=== PATIENT | female | born 1970 | race American Indian/Alaskan Native ===

== ENCOUNTER 2018-04-19 09:02 | Emergency (ER) | payer SELFPAY ==
[2018-04-19 09:22] VITALS: BP 147/70
[2018-04-19] MEDS ORDERED: COLCHICINE PO ONE (11:01)
--- NOTE | 2018-04-19 11:01 | Emergency Department Report ---
ED Lower Extremity HPI - General Chief Complaint: Extremity Injury, Lower Stated Complaint: BIG TOE JOINT PAIN Time Seen by Provider: 04/19/18 11:00 Source: patient Mode of arrival: Ambulatory Limitations: No Limitations - History of Present Illness Complaint: other (R GREAT TOE PAIN. EVEN THE SHEET HURTS ) -: Sudden Injury: Toes: Right Type of Injury: other (NO TRAUMA) Place: home Severity: moderate Worsens With: weight bearing, movement, palpation Associated Symptoms: ambulatory (W LIMP). denies: snap/pop sensation, swelling , numbness, tingling, unable to bear weight, able to partially bear weight Treatments Prior to Arrival: NSAIDS - Related Data Previous Rx's Medication Instructions Recorded Last Taken Type Colchicine 0.6 mg PO DAILY #10 capsule 04/19/18 Unknown Rx predniSONE [Deltasone] 50 mg PO QDAY #5 tab 04/19/18 Unknown Rx Allergies Allergy/AdvReac Type Severity Reaction Status Date / Time No Known Allergies Allergy Verified 04/19/18 09:20 ED Review of Systems ROS: Stated complaint: BIG TOE JOINT PAIN Other details as noted in HPI Comment: All other systems reviewed and negative Constitutional: denies: chills Eyes: denies: eye pain ENT: denies: throat pain Respiratory: denies: cough Cardiovascular: denies: palpitations Endocrine: denies: intolerance to heat Gastrointestinal: denies: vomiting Genitourinary: denies: urgency Musculoskeletal: joint swelling (R GREAT TOE). denies: back pain Skin: denies: rash, lesions Neurological: denies: weakness Psychiatric: denies: depression Hematological/Lymphatic: denies: easy bleeding ED Past Medical Hx - Past Medical History Additional medical history: ARTHRITIS - Surgical History Past Surgical History?: No - Social History Smoking Status: Current Every Day Smoker Substance Use Type: Alcohol - Medications Home Medications: Home Medications Medication Instructions Recorded Confirmed Last Taken Type Colchicine 0.6 mg PO DAILY #10 capsule 04/19/18 Unknown Rx predniSONE [Deltasone] 50 mg PO QDAY #5 tab 04/19/18 Unknown Rx ED Physical Exam - General Limitations: No Limitations General appearance: alert - Head Head exam: Present: atraumatic - Eye Eye exam: Present: normal appearance Pupils: Present: normal accommodation - ENT ENT exam: Present: mucous membranes moist - Neck Neck exam: Present: normal inspection - Respiratory Respiratory exam: Present: normal lung sounds bilaterally - Cardiovascular Cardiovascular Exam: Present: regular rate - GI/Abdominal GI/Abdominal exam: Present: soft - Rectal Rectal exam: Present: deferred - Extremities Exam Extremities exam: Present: normal inspection, full ROM, tenderness (R GREAT TOE) , normal capillary refill. Absent: pedal edema - Back Exam Back exam: Present: normal inspection, full ROM. Absent: tenderness, CVA tenderness (R) - Neurological Exam Neurological exam: Present: alert, oriented X3, CN II-XII intact, normal gait, reflexes normal - Psychiatric Psychiatric exam: Present: normal affect, normal mood - Skin Skin exam: Present: warm, dry, intact, normal color ED Course Vital Signs 04/19/18 09:20 Temperature 98.1 F Pulse Rate 68 Respiratory 18 Rate Blood Pressure 147/70 O2 Sat by Pulse 100 Oximetry ED Lower Extremity MDM - Medical Decision Making NO TRAUMA PAIN EVEN W SHEET ON TOE - Differential Diagnosis TRAUMA V GOUT Critical care attestation.: If time is entered above; I have spent that time in minutes in the direct care of this critically ill patient, excluding procedure time. ED Disposition Clinical Impression: Great toe pain, Gout Disposition: - TO HOME OR SELFCARE Is pt being admited?: No Does the pt Need Aspirin: No Condition: Stable Instructions: Acute Gouty Arthritis (ED), Arthralgia (ED) Additional Instructions: DIET - SEE ATTACHED ACTIVITY TOLERATED MEDS ORDERED MOTRIN OVER THE COUNTER CAN BE USED FOR PAIN NOT RELIEVED BY THESE MEDS FOLLOW UP WITH PCP SEE BELOW. Prescriptions: Colchicine 0.6 mg PO DAILY #10 capsule predniSONE [Deltasone] 50 mg PO QDAY #5 tab Referrals: PRIMARY MD LILLY [Primary Care Provider] - 3-5 Days JERALD PIZANO MD [Staff Physician] - 3-5 Days Time of Disposition: 11:03
[2018-04-19] MEDS ORDERED: DELTASONE PO ONE (11:02)
== END 2018-04-19 11:28 | disposition home or self-care (01) ==
LOC: ED 09:02
DX: M79.674 Pain in right toe(s) (principal); M10.9 Gout, unspecified; F17.200 Nicotine dependence, unspecified, uncomplicated; M19.90 Unspecified osteoarthritis, unspecified site
CPT/HCPCS: 99282; J7512

== ENCOUNTER 2018-08-17 06:15 | Emergency (ER) | payer SELFPAY ==
[2018-08-17 06:42] VITALS: BP 128/72
--- NOTE | 2018-08-17 09:08 | Emergency Department Report ---
ED General Adult HPI - General Chief complaint: Extremity Injury, Lower Stated complaint: LEFT KNEE SWOLLEN Time Seen by Provider: 08/17/18 08:57 Source: patient Mode of arrival: Ambulatory Limitations: No Limitations - History of Present Illness Initial comments: Patient presents to emergency department with a chief complaint of onset of left knee pain that started yesterday. Patient states she has a history of gout, left great toe and this pain feels very similar. She states her gout pain was helped with colchicine. Patient denies any injury or overuse of her knee. -: Sudden Location: lower extremity Severity scale (0 -10): 8 Quality: aching, sharp Consistency: constant Improves with: rest Worsens with: movement Associated Symptoms: denies other symptoms Treatments Prior to Arrival: none - Related Data Previous Rx's Medication Instructions Recorded Last Taken Type Colchicine 0.6 mg PO DAILY #10 capsule 04/19/18 Unknown Rx predniSONE [Deltasone] 50 mg PO QDAY #5 tab 04/19/18 Unknown Rx Colchicine 0.6 mg PO DAILY PRN #10 capsule 08/17/18 Unknown Rx Ibuprofen [Motrin] 800 mg PO Q8HR PRN #30 tablet 08/17/18 Unknown Rx predniSONE [Deltasone] 20 mg PO DAILY #15 tablet 08/17/18 Unknown Rx traMADol [Ultram] 50 mg PO Q6HR PRN #24 tablet 08/17/18 Unknown Rx Allergies Allergy/AdvReac Type Severity Reaction Status Date / Time No Known Allergies Allergy Verified 04/19/18 09:20 ED Review of Systems ROS: Stated complaint: LEFT KNEE SWOLLEN Other details as noted in HPI Comment: All other systems reviewed and negative Constitutional: denies: chills, fever Eyes: denies: eye pain, eye discharge, vision change ENT: denies: ear pain, throat pain Respiratory: denies: cough, shortness of breath, wheezing Cardiovascular: denies: chest pain, palpitations Endocrine: no symptoms reported Gastrointestinal: denies: abdominal pain, nausea, diarrhea Genitourinary: denies: urgency, dysuria, discharge Musculoskeletal: arthralgia. denies: back pain, joint swelling Skin: denies: rash, lesions Neurological: denies: headache, weakness, paresthesias Psychiatric: denies: anxiety, depression Hematological/Lymphatic: denies: easy bleeding, easy bruising ED Past Medical Hx - Past Medical History Previous Medical History?: Yes Hx Arthritis: Yes (gout) Additional medical history: ARTHRITIS - Surgical History Past Surgical History?: No - Social History Smoking Status: Current Every Day Smoker Substance Use Type: Alcohol - Medications Home Medications: Home Medications Medication Instructions Recorded Confirmed Last Taken Type Colchicine 0.6 mg PO DAILY #10 capsule 04/19/18 Unknown Rx predniSONE [Deltasone] 50 mg PO QDAY #5 tab 04/19/18 Unknown Rx Colchicine 0.6 mg PO DAILY PRN #10 capsule 08/17/18 Unknown Rx Ibuprofen [Motrin] 800 mg PO Q8HR PRN #30 tablet 08/17/18 Unknown Rx predniSONE [Deltasone] 20 mg PO DAILY #15 tablet 08/17/18 Unknown Rx traMADol [Ultram] 50 mg PO Q6HR PRN #24 tablet 08/17/18 Unknown Rx ED Physical Exam - General Limitations: No Limitations General appearance: alert, in no apparent distress - Head Head exam: Present: atraumatic, normocephalic - Eye Eye exam: Present: normal appearance, PERRL, EOMI - ENT ENT exam: Present: mucous membranes moist - Neck Neck exam: Present: normal inspection - Respiratory Respiratory exam: Present: normal lung sounds bilaterally. Absent: respiratory distress, wheezes, rales - Cardiovascular Cardiovascular Exam: Present: regular rate, normal rhythm. Absent: systolic murmur, diastolic murmur, rubs, gallop - Extremities Exam Extremities exam: Present: other (tenderness to palpation just inferior to the left patella at the insertion of the patella tendon) - Back Exam Back exam: Present: normal inspection - Neurological Exam Neurological exam: Present: alert, oriented X3, CN II-XII intact. Absent: motor sensory deficit - Psychiatric Psychiatric exam: Present: normal affect, normal mood - Skin Skin exam: Present: warm, dry, intact, normal color. Absent: rash ED Course Vital Signs 08/17/18 06:36 Temperature 98.4 F Pulse Rate 84 Respiratory 18 Rate Blood Pressure 128/72 O2 Sat by Pulse 100 Oximetry ED Medical Decision Making - Medical Decision Making Discussed plan of care with patient Critical care attestation.: If time is entered above; I have spent that time in minutes in the direct care of this critically ill patient, excluding procedure time. ED Disposition Clinical Impression: Knee pain Disposition: - TO HOME OR SELFCARE Is pt being admited?: No Does the pt Need Aspirin: No Condition: Stable Instructions: Knee Pain (ED), Acute Gouty Arthritis (ED) Additional Instructions: return if worse Prescriptions: Colchicine 0.6 mg PO DAILY PRN #10 capsule PRN Reason: pain Referrals: SHARON LEE MD [Primary Care Provider] - 3-5 Days [facility] [Provider Group] - 3-5 Days [facility] [Provider Group] - 3-5 Days [facility] [Outside] - 3-[address] [facility] [Provider Group] - 3-[address] [facility] [Provider Group] - 3-5 Days Forms: Work/School Release Form(ED) Time of Disposition: 09:09
== END 2018-08-17 09:23 | disposition home or self-care (01) ==
LOC: ED 06:15
DX: M25.562 Pain in left knee (principal); M10.9 Gout, unspecified; F17.200 Nicotine dependence, unspecified, uncomplicated
CPT/HCPCS: 99281